=== PATIENT | female | born 1940 | race Asian ===

== ENCOUNTER → 2016-10-06 | Outpatient (CLI) | payer OTHER ==
[~2016-10-06] VITALS: Ht 152.4 cm; Wt 60.2 kg
[~2016-10-06] MED LIST: ADULT LOW DOSE81 MG PO; ADVIL100 M2 PO; B COMPLEX-VITA1 EACH PO; BIOTIN10 MG PO; BIOTIN300 MCG PO; CHONDROITIN SU1 EACH PO; DOXYCYCLINE 10100 MG PO; FLEXERIL PO; FOLIC ACID1 MG PO; IBUPROFEN 200200 M1 PO; IRON325 PO; MULTIPLE VITAM1 EAC3 PO; MULTIVITAMINS PO; NORCO 5-325 TA1 EACH PO; OPTIFLEX-C400 MG PO; OS-CAL 500+D C1 EACH PO; PREDNISONE 10 M10 MG PO; ROBAXIN500 MG PO; TESSALON PERLE100 MG PO; VITAMIN B PO; VITAMINC500 PO
--- NOTE | ~2016-10-06 | HPC ---
[facility] [place] [address] PAIN MANAGEMENT CONSULTATION Name: DAVID ROE Room #: REG VERITO Chavez.#: [id number] Admission: 10/06/16 Attend Phys: Vero Licona MD Discharge: Date of : 42 Report #: [id number] THIS REPORT FOR: //name// CC: FAM physician/PCP JUAN CARLOS Licona CHIEF COMPLAINT: Low back pain that radiates down to the hip and down into the right leg. It stops at the knee. FOLLOWUP HISTORY: The patient is a 76-year-old female, who has been seen in the pain clinic in the past because of lumbar radiculopathy. She has undergone epidural steroid injections. She finds that she is having pain and discomfort in her back with radiation down into her leg when walking and rates it as an 8/10. She describes it as sharp, throbbing chronic involving the low back, right hip, right leg. She has gleaned benefits from epidural steroid injections in the past. She rates her pain at this juncture at 8/10. She has gleaned greater than 70% improvement in the past and would like to proceed with another epidural steroid injection at this juncture. PHYSICAL EXAMINATION: Blood pressure 142/88, pulse 70, respiratory rate 16, room air saturation 98%. Height 5 feet, weight 152 pounds, BMI is 25. The patient has not fallen since we saw her last. She complains of pain and discomfort radiating down into the right hip, leg to the level of the knee in the L4-L5 distribution. IMPRESSION: 1. Lumbar radiculopathy - broad-based paracentral disk at the L4-L5 area. 2. Foraminal encroachment at L5-S1. The patient was informed about the procedure. Risks and benefits which could include infection, bleeding, headaches, worsening of nerve pain, increased muscle soreness were explained and the patient elects to proceed. PROCEDURE NOTE: The patient was placed in the prone position. Fluoroscopy was used to identify the L4-L5 interspace. This area had been sterilely prepped with Betadine and infiltrated with 0.25% bupivacaine. Total of 80 mg Depo-Medrol, 40 mg triamcinolone and 2 mL of 0.25% bupivacaine was injected. The patient tolerated the procedure well. There were no complications. We would like to thank you for letting us participate in her care. We hope she continues to improve. By: [id number] Vero Licona MD /nt
[2016-10-06 08:49] VITALS: BP 142/88
== END | disposition home or self-care (01) ==
LOC: PAIN 06:52
DX: M48.06 Spinal stenosis, lumbar region (principal); G89.29 Other chronic pain; Z79.82 Long term (current) use of aspirin; Z98.890 Other specified postprocedural states

== ENCOUNTER → 2018-11-20 | Outpatient (CLI) | payer OTHER ==
[~2018-11-20] VITALS: Ht 152.4 cm; Wt 59.8 kg
[~2018-11-20] MED LIST changes: +RESTASIS1 EACH OPHTHALMIC; +SINGULAIR 10 MG10 M1 PO; +TYLENOL EXTRA500 MG PO; +VITAMIN D3400 UNIT PO
--- NOTE | ~2018-11-20 | HPC ---
[facility] [address] [place] [address] PAIN MANAGEMENT CONSULTATION Name: DAVID ROE Room #: REG VERITO Yosef#: [id number] Admission: 11/20/18 ������������������ Attend Phys: Giorgi Pelletier MD Discharge: ������������������ Date of : 42 Report #: [id number] THIS REPORT FOR: //name// CC: Andrzej Pelletier DATE OF SERVICE: 11/20/2018 Followup visit for chronic low back pain. The patient is here today for an epidural injection. She has received injections periodically over the years, always reporting good improvement following the injections. Her last injection at [facility] was performed in September 2016. I did see her at [facility] during my clinic there and provided her with a couple of injections. A year ago, she fractured her femur. It has been a long uphill fields of recovery, but she has now made great strides. She is walking and exercising at [facility]. There was an intramedullary eva placed initially after her fracture in September of 2017. It was replaced in February apparently because of the diameter was not felt to be substantial. This has gone pretty smoothly since February and she says that she has improved from that standpoint. Because of pain across her low back and her previous good response to epidural injections, she has asked to be seen today for treatment. I reviewed her previous treatments and potential risks and benefits, and she would like to proceed with an injection. PQRS review is completed. 1. She denies history of osteoarthritis or rheumatoid arthritis. 2. BMI is 25.7. 3. Vital signs: Blood pressure 118/68, heart rate 89, respirations 14. 4. Pain intensity is 7-8/10 with weightbearing. 5. She has not fallen in the last 3 months. I would consider her a fall risk based on the gait that I see today in the clinic. She needs to be cautious in her movements. 6. She is on no blood thinning medications. 7. She takes no medications for hypertension. All medications were reviewed and reconciled that include vitamins, Singulair, Restasis, Tylenol, and chondroitin. 8. She is on no opioid medications. 9. She did complete an opioid risk tool as our patients do and she scored low for any concerns of addiction. 10. Functional assessment tool was not scored. 11. She denies tobacco or alcohol use. 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 VITAL SIGNS: As noted above. CHEST: Clear. CARDIAC: Rhythm is normal with a slight systolic murmur. BACK: Examination of the low back reveals tenderness across the lumbosacral segment, pain with forward flexion, extension and rotation. Straight leg raising is performed with some pain into the right leg, but this is likely due to her femur fracture. There is weakness in hip flexion, also I think due to her original fracture. There is no other focal weakness. Sensation is intact. IMPRESSION: Chronic intractable low back pain with history of lumbar radiculopathy. Good response in the past to epidural injections. RECOMMENDATION: Epidural steroid injection under fluoroscopic guidance. After informed consent, she was taken to fluoroscopic suite, placed prone, skin prepped with ChloraPrep. Skin anesthetized over L4-L5. A 20-gauge Tuohy epidural needle advanced in first attempt in the epidural space with loss of resistance. There was no blood or CSF aspirated. A 0.25 mL of Omnipaque was injected and excellent epidurogram achieved and it was followed then by 3 mL of 0.5% lidocaine mixed with 80 mg triamcinolone. She tolerated the procedure well and was observed for 45 minutes and discharged. Follow up as needed. ��������������������������������������������� ���������������������������������������� By: ��������������������������������������������� [id number] Giorgi Pelletier MD /nt
[2018-11-20 13:01] VITALS: BP 118/68
--- NOTE | 2018-11-20 13:18 | NUR ---
Pain Clinic Assessment: 1. History of Osteoarthritis: NO History of Rheumatoid Arthritis: NO 2. Height: 5 ft. 0 in. 152.4 cm. Weight: 131.8 lb. oz. 59.784 kg. Patient's BMI: 25.7 3. Vital Signs: BP: 118/68 Pulse: 89 Resp: 14 Temp: 02 Sat: 96 ECG Mon: 4. Pain Intensity: 7 5. Fall Risk: Dizziness: N Needs help standing or walking: N Fallen in the last 3 months: N Fall risk comments: 6. Patient on Blood Thinner: None 7. History of Hypertension: N 8. Opioid Therapy greater than 6 weeks: N Opiate Contract Signed: 9. Risk Assessment Tool Provided: LOW 10. Functional Assessment Tool: 11. Recreational Drug Use: Never Drug Type: Tobacco Use: Never Smoker Tobacco Type: Amount or Packs/day: How Many Years: Alcohol Use: No Frequency: Quant:
== END | disposition home or self-care (01) ==
LOC: PAIN 06:54
DX: M54.16 Radiculopathy, lumbar region (principal); G89.29 Other chronic pain; Z98.890 Other specified postprocedural states; Z79.899 Other long term (current) drug therapy

== ENCOUNTER 2018-12-21 05:44 | Day surgery (SDC) | payer OTHER ==
[~2018-12-21] VITALS: Ht 152.4 cm; Wt 59.0 kg
[2018-12-21 10:09] VITALS: BP 104/70
--- NOTE | 2018-12-25 06:18 | O ---
[facility] [address] [place] [address] OPERATIVE REPORT Name: DAVID ROE Room #: DEP [facility]..#: [id number] Admission: 12/21/18 ������������������ Attend Phys: Angelo Navarro MD Discharge: 12/21/18 ������������������ Date of : 42 Report #: [id number] THIS REPORT FOR: //name// CC: Rivera Navarro DATE OF SERVICE: 12/21/2018 TILE FITTER: None. PREOPERATIVE DIAGNOSIS: Unilateral right upper lid ptosis. POSTOPERATIVE DIAGNOSIS: Unilateral right upper lid ptosis. OPERATION PERFORMED: Unilateral right upper lid ptosis repair. ANESTHESIA: Local anesthesia with IV sedation. COMPLICATIONS: None. INDICATIONS FOR SURGERY: This patient has right upper lid ptosis with superior visual field loss. Visual field testing demonstrates dense superior visual defects. Retesting with the upper lid elevated shows an improvement in visual field loss of over 30% and in excess of 12 degrees. The current procedure is undertaken in order to improve the patient's visual function. Informed consent was obtained to include but not limited to the potential risks for bleeding, scarring, infection, loss of vision, failure to improve the problem, need for further surgery and need for adjustment of lid height. DESCRIPTION OF PROCEDURE: The patient was taken to the operating room, where a right upper lid crease was drawn with a skin marking pen. The incision was then made with Josefina scissors and dissected down to the orbital septum. Hemostasis was achieved with a monopolar cautery as it was throughout the case. The orbital septum was then entered and the pre-aponeurotic fat identified. The levator aponeurosis was then disinserted from the anterior surface of the tarsal plate and dissected free in the avascular Sahu's muscle plane. The aponeurosis was then advanced onto the anterior surface of the tarsal plate and reattached with mattress double-arm 6-0 Novafil sutures, adjusting for height and contour. The redundant aponeurosis was then amputated. The upper lid crease was then reformed with interrupted 6-0 chromic sutures. The skin was closed with interrupted 6-0 plain gut suture. The wound was then cleaned and dressed with ophthalmic antibiotic ointment. [address] [address] OPERATIVE REPORT Name: DAVID ROE Room #: DEP [facility]#: [id number] Admission: 12/21/18 ������������������ Attend Phys: Angelo Navarro MD Discharge: 12/21/18 ������������������ Date of : 42 Report #: [id number] The patient was then transported to the recovery area, having tolerated the procedure well with no anesthesia or operative complications being noted. ��������������������������������������������� <ELECTRONICALLY SIGNED> ���������������������������������������� By: Angelo Navarro MD ��������������������������������������������� 12/25/18 0618 [id number] Angelo Navarro MD /nt
== END 2018-12-21 08:20 | disposition home or self-care (01) ==
LOC: OR 05:44 → TBA 05:49 → OR 08:20
DX: H02.401 Unspecified ptosis of right eyelid (principal); F03.90 Unspecified dementia, unspecified severity, without behavioral disturbance, psychotic disturbance, mood disturbance, and anxiety; I25.10 Atherosclerotic heart disease of native coronary artery without angina pectoris; M81.0 Age-related osteoporosis without current pathological fracture; Z98.890 Other specified postprocedural states; Z90.49 Acquired absence of other specified parts of digestive tract
CPT/HCPCS: 50010; 50101; 50386; 50398; 51636; 56528; 56531; 62110; 62850; 70005

== ENCOUNTER → 2019-01-18 | Outpatient (CLI) | payer OTHER ==
[~2019-01-18] VITALS: Ht 152.4 cm; Wt 59.7 kg
[~2019-01-18] MED LIST changes: +ARICEPT10 MG PO; +B-COMPLEX-VITA1 EACH PO; +CALCIUM CARBON600 MG PO; +COZAAR 25 MG TA25 M1 PO; +GLUCOSAMINE-CH1 EA45 PO; +HYDROCODONE-AP1 EA11 PO; +MULTIPLE VITAM1 EAC4 PO; +VITAMIN C1000 MG PO; +VITAMIN D1000 UNI2 PO
[2019-01-18 13:37] VITALS: BP 142/83
--- NOTE | 2019-01-18 13:56 | NUR ---
Pain Clinic Assessment: 1. History of Osteoarthritis: NO History of Rheumatoid Arthritis: NO 2. Height: 5 ft. 0 in. 152.4 cm. Weight: 131.6 lb. oz. 59.693 kg. Patient's BMI: 25.7 3. Vital Signs: BP: 142/83 Pulse: 73 Resp: 14 Temp: 02 Sat: 96 ECG Mon: 4. Pain Intensity: 6-7 5. Fall Risk: Dizziness: N Needs help standing or walking: N Fallen in the last 3 months: N Fall risk comments: 6. Patient on Blood Thinner: None 7. History of Hypertension: N 8. Opioid Therapy greater than 6 weeks: N Opiate Contract Signed: 9. Risk Assessment Tool Provided: LOW-0 10. Functional Assessment Tool: 11. Recreational Drug Use: Never Drug Type: Tobacco Use: Never Smoker Tobacco Type: Amount or Packs/day: How Many Years: Alcohol Use: No Frequency: Quant:
--- NOTE | 2019-01-25 16:52 | HPC ---
[facility] [address] [place] [address] PAIN MANAGEMENT CONSULTATION Name: DAVID ROE Room #: REG VERITO Yosef#: [id number] Admission: 01/18/19 Attend Phys: Giorgi Pelletier MD Discharge: Date of : 42 Report #: [id number] THIS REPORT FOR: //name// CC: Rivera Pelletier DATE OF SERVICE: 01/18/2019 Followup visit for low back pain with radiculopathy. Jeanine returns to pain clinic today for epidural injection. Her pain is 6-7/10 and radiates into her right leg. This is the leg that she fractured and she has an intramedullary eva. She has responded nicely throughout her treatments over the years, typically getting good response to the radicular component of pain. She has degenerative disk disease primarily at L4-L5 causing encroachment. I have always injected her at that level. Her last injection was performed to the left of midline where her symptoms were more prominent and she reports she continues to do fairly well there. She has an upcoming trip planned in March which she has paid a lot of money for a cruise in to [place]. She would like to be ready for the trip. I have agreed to provide her with some pain medication as a trial, so she will know how this is going to affect her in case she needs to take some medication on the trip. PQRS REVIEW: 1. History of osteoarthritis is negative. 2. BMI is 25.6. 3. Blood pressure 142/83, heart rate 73. 4. No fall risks. She has not fallen in the last 3 months. 5. She takes no blood thinning medications. 6. No medication for hypertension. 7. She is not currently on an opioid agreement. 8. She completed an opioid risk tool with a low score for potential addiction. 9. Functional assessment score was not performed. 10. She denies alcohol and tobacco. PHYSICAL EXAMINATION: VITAL SIGNS: As noted above. She moves independently from sitting to standing position. Her gait is antalgic. CHEST: Clear. CARDIAC: Rhythm is regular with a slight systolic murmur. MUSCULOSKELETAL: She has pain across the low back and tenderness in the [address] [address] PAIN MANAGEMENT CONSULTATION Name: DAVID ROE Room #: REG [facility].#: [id number] Admission: 01/18/19 Attend Phys: Giorgi Pelletier MD Discharge: Date of : 42 Report #: [id number] lumbosacral segment with flexion and extension. Straight leg raising on the right reproduces pain into the right L5 distribution. Sensation is intact. IMPRESSION: Right lumbar radiculopathy. RECOMMENDATIONS: Repeat epidural steroid injection under fluoroscopic guidance. PROCEDURE: She was taken to fluoroscopic suite, placed prone, skin prepped with ChloraPrep. Skin anesthetized over the L4-L5 interspace to the right of midline. A 20-gauge Tuohy epidural needle advanced in the epidural space with loss of resistance technique. There was no blood nor CSF aspirated. A 1 mL of Omnipaque injected. Good spread of dye observed in the epidural space followed by 3 mL of 0.5% lidocaine mixed with 80 mg of triamcinolone. She tolerated the procedure well and was observed for 45 minutes and discharged. Follow up as needed. <ELECTRONICALLY SIGNED> By: Giorgi Pelletier MD 01/25/19 1652 [id number] Girogi Pelletier MD /nt
== END | disposition home or self-care (01) ==
LOC: PAIN 06:58
DX: M54.16 Radiculopathy, lumbar region (principal); Z79.899 Other long term (current) drug therapy